=== PATIENT | male | born 1980 | race Caucasian/White ===

== ENCOUNTER 2018-02-22 07:27 | Day surgery (SDC) | payer BC ==
[~2018-02-22 07:27] MED LIST: CEFAZOLIN 2 GM/50 ML (PMX) 50 ML IVPB
[2018-02-22] MEDS: SOD CHLORIDE 0.9% 1,000 ML IV (08:39)
[2018-02-22] MEDS ORDERED: MEPERIDINE 100 MG INJ (10:11)
[2018-02-22] MEDS ORDERED: ONDANSETRON 4 MG INJ (10:11)
[2018-02-22] MEDS ORDERED: CEFAZOLIN 1 GM INJ (10:11)
[2018-02-22] MEDS ORDERED: LIDOCAINE 2% (SDV) 5 ML INJ (10:11)
[2018-02-22] MEDS ORDERED: PROPOFOL 20 ML (10:11)
[2018-02-22] MEDS: BUPIVACAINE 0.25% (MPF) 30 ML INJ (11:01)
[2018-02-22] MEDS ORDERED: NALOXONE (0.4 MG/ML) INJ (11:31)
[2018-02-22] MEDS ORDERED: MEPERIDINE 25 MG INJ IV (12:00)
[2018-02-22] MEDS ORDERED: FENTAnyl 50 MCG/ML VIAL IV ×2 (12:00)
[2018-02-22] MEDS ORDERED: OXYCODONE/ACETAMINOPHEN (5/325) TAB PO ×2 (12:00)
[2018-02-22] MEDS ORDERED: hydrALAzine 20 MG INJ IV (12:00)
[2018-02-22] MEDS ORDERED: EPHEDrine SULFATE 50 MG/5 ML SYG IV (12:00)
[2018-02-22] MEDS ORDERED: METOCLOPRAMIDE 10 MG INJ IV (12:00)
[2018-02-22] MEDS ORDERED: MIDAZOLAM 1 MG/ML 2 ML INJ IV (12:00)
[2018-02-22] MEDS ORDERED: LABETALOL HCL 20MG INJ IV (12:00)
[2018-02-22] MEDS ORDERED: ONDANSETRON 4 MG INJ IV (12:00)
[2018-02-22] MEDS ORDERED: DIPHENHYDRAMINE 50 MG INJ IV (12:00)
[2018-02-22] MEDS: FENTAnyl 50 MCG/ML VIAL IV (12:15)
[2018-02-22] MEDS: HYDROCODONE/APAP (5/325) TAB PO (12:46)
== END 2018-02-22 17:22 | disposition home or self-care (01) ==
LOC: SDS 07:27
DX: L72.11 Pilar cyst (principal); D17.0 Benign lipomatous neoplasm of skin and subcutaneous tissue of head, face and neck
CPT/HCPCS: 14021; 88307